=== PATIENT | female | born 1985 | race Two or more races ===

== ENCOUNTER 2019-02-26 12:48 | Emergency (ER) | payer OTHER ==
[~2019-02-26] VITALS: Ht 177.8 cm; Wt 125.0 kg
--- NOTE | 2019-02-26 12:52 | NUR ---
phone number [phone]
--- NOTE | 2019-02-26 13:04 | NUR ---
BIB [facility] FROM [facility]. PT C/O CP, SOB, DIZZY WHILE PLAYING WITH DAUGHTER IN [employer]. DX ANXIETY, HTN. [employer]GE[employer] [facility]: 1MG VERSED, 324 ASA, PIV 20G RAC. PT HYPERTENSIVE WITH [facility], BP DECREASED AFTER VERSED. PT BP WNL UPON ARRIVAL. CONNECTED TO MONITORING. EKG COMPLETE. AWAITING ORDERS AT THIS TIME
[2019-02-26 13:56] LABS: BASOPHILS # (AUTO) 0.03 x10^3/uL (0-0.1); BASOPHILS % (AUTO) 0 % (0-1); EOSINOPHILS # (AUTO) 0.06 x10^3/uL (0-0.4); EOSINOPHILS % (AUTO) 1 % (1-7); LYMPHOCYTES # (AUTO) 1.54 x10^3/uL (1-3.4); LYMPHOCYTES % (AUTO) 18 % (22-44); MD NO; MEAN CORPUSCULAR HEMOGLOBIN 27.8 pg (27.0-34.8); MEAN CORPUSCULAR HGB CONC 33.2 g/dL (32.4-35.8); MEAN CORPUSCULAR VOLUME 83.6 fL (80-100); MEAN PLATELET VOLUME 7.1 fL (7.4-10.4); MONOCYTES # (AUTO) 0.37 x10^3/uL (0.2-0.8); MONOCYTES % (AUTO) 5 % (2-9); NEUTROPHILS # (AUTO) 6.36 x10^3/uL (1.8-6.8); NEUTROPHILS % (AUTO) 76 % (42-75); PLATELET COUNT 392 x10^3/uL (130-400); RED BLOOD COUNT 4.48 x10^6/uL (3.82-5.3); RED CELL DISTRIBUTION WIDTH 14.2 % (9.6-15.2)
[2019-02-26 14:02] VITALS: BP 120/74
--- NOTE | 2019-02-26 14:03 | NUR ---
PT RESTING COMFORTABLY ON GURNEY. HAYDEN.
[2019-02-26 14:11] LABS: ALANINE AMINOTRANSFERASE 30 U/L (12-78); ALBUMIN 3.6 g/dL (3.4-5.0); ANION GAP 7 mmol/L (5-15); CALCIUM 8.6 mg/dL (8.5-10.1); CHLORIDE 108 mmol/L (98-107); CREATININE 0.94 mg/dL (0.55-1.02)
[2019-02-26 14:16] LABS: ALKALINE PHOSPHATASE 84 U/L (45-117); BILIRUBIN,TOTAL 0.2 mg/dL (0.2-1.0); TOTAL PROTEIN 7.9 g/dL (6.4-8.2); TROPONIN I < 0.015 ng/mL (0.000-0.045)
--- NOTE | 2019-02-26 14:29 | NUR ---
ALL RESULTS ARE BACK AT THIS TIME. CHART UP FOR RECHECK.
== END 2019-02-26 14:42 | disposition home or self-care (01) ==
LOC: EDBD 12:48 → ED 13:49
DX: R07.9 Chest pain, unspecified (principal); I10 Essential (primary) hypertension; E11.9 Type 2 diabetes mellitus without complications
CPT/HCPCS: 36415; 71045; 80053; 84443; 84484; 85025; 93005; 99284